=== PATIENT | female | born 1980 | race American Indian/Alaskan Native ===

== ENCOUNTER 2017-04-06 23:27 | Emergency (ER) | payer SELFPAY ==
[2017-04-07] MEDS ORDERED: CATAPRES PO ONE (00:05)
[2017-04-07 00:26] LABS: Basophils % (Auto) 0.3 % (0.0-1.8); Hematocrit 34.6 % (30.3-42.9); Hemoglobin 11.1 gm/dl (10.1-14.3); Mean Corpuscular HGB Conc 32 % (30-34); Mean Corpuscular Hemoglobin 24 pg (28-32); Mean Corpuscular Volume 76 fl (79-97); Platelet Count 364 K/mm3 (140-440); Red Blood Count 4.53 M/mm3 (3.65-5.03); Red Cell Distribution Width 17.7 % (13.2-15.2); White Blood Count 10.5 K/mm3 (4.5-11.0)
[2017-04-07 00:46] LABS: Anion Gap 20 mmol/L; Blood Urea Nitrogen 15 mg/dL (7-17); Calcium 10.1 mg/dL (8.4-10.2); Carbon Dioxide 22 mmol/L (22-30); Chloride 96.7 mmol/L (98-107); Glucose 131 mg/dL (65-100); Potassium 3.9 mmol/L (3.6-5.0); Sodium 135 mmol/L (137-145)
--- NOTE | 2017-04-07 01:43 | Emergency Department Report ---
ED ENT HPI - General Chief complaint: Sore Throat Stated complaint: DIFFCULTY SWALLOWING Time Seen by Provider: 04/07/17 00:57 Source: patient Mode of arrival: Ambulatory Limitations: No Limitations - History of Present Illness Initial comments: This is a 37-year-old female well-nourished with nontoxic or ill in appearance that presents sore throat and painful swallowing that started to occur today around 5 pm. Patient stated was d/c from [facility] 4 days ago for hypertension and hypokalemia and was prescribed potassium chloride 20 meq and HCTZ 25mg. Patient stated has been taking those medications since prescribed. Patient denies any fever, chills, blurry vision, headache, abd pain, CP, SOB, headache, stiff neck, numbness, or tingling, n/v. Patient associated symptoms include sore throat that is described as sharp rating 8/10. Patient stated she was eating a sub and salad before coming to the ED around 7 pm. Patient denies cough or aspiration. Patient denies drug allergies. Hx of HTN. MD complaint: sore throat, difficulty swallowing (with pain) -: days(s) (1) Location: throat Severity: mild Severity scale (0 -10): 8 Quality: stabbing Consistency: constant Improves with: none Worsens with: swallowing Associated Symptoms: pain with swallowing, sore throat. denies: fever, cough, gum swelling, toothache, tinnitus, hearing loss, discharge from ear, rhinorrhea - Related Data Previous Rx's Medication Instructions Recorded Last Taken Type Cephalexin [Keflex] 500 mg PO Q6HR #20 capsule 10/06/15 Unknown Rx Erythromycin [Erythromycin Ophth 0 gm OU Q4HR #1 tube 10/06/15 Unknown Rx Oint] Ibuprofen [Motrin 800 MG tab] 800 mg PO TID PRN #30 tablet 11/07/15 Unknown Rx oxyCODONE /ACETAMINOPHEN [Percocet 1 tab PO Q4HR #30 tablet 11/07/15 Unknown Rx 5/325 mg] Amoxicillin/K Clav Tab [Augmentin 1 tab PO Q12HR #20 tab 04/07/17 Unknown Rx 875 mg] Allergies Allergy/AdvReac Type Severity Reaction Status Date / Time No Known Allergies Allergy Verified 02/21/14 03:06 ED Dental HPI - General Chief complaint: Sore Throat Stated complaint: DIFFCULTY SWALLOWING Time Seen by Provider: 04/07/17 00:57 Source: patient Mode of arrival: Ambulatory Limitations: No Limitations - Related Data Previous Rx's Medication Instructions Recorded Last Taken Type Cephalexin [Keflex] 500 mg PO Q6HR #20 capsule 10/06/15 Unknown Rx Erythromycin [Erythromycin Ophth 0 gm OU Q4HR #1 tube 10/06/15 Unknown Rx Oint] Ibuprofen [Motrin 800 MG tab] 800 mg PO TID PRN #30 tablet 11/07/15 Unknown Rx oxyCODONE /ACETAMINOPHEN [Percocet 1 tab PO Q4HR #30 tablet 11/07/15 Unknown Rx 5/325 mg] Amoxicillin/K Clav Tab [Augmentin 1 tab PO Q12HR #20 tab 04/07/17 Unknown Rx 875 mg] Allergies Allergy/AdvReac Type Severity Reaction Status Date / Time No Known Allergies Allergy Verified 02/21/14 03:06 ED Review of Systems ROS: Stated complaint: DIFFCULTY SWALLOWING Other details as noted in HPI Constitutional: denies: chills, fever Eyes: denies: eye pain, eye discharge, vision change ENT: throat pain. denies: ear pain Respiratory: denies: cough, orthopnea, shortness of breath, SOB with exertion, SOB at rest, wheezing Cardiovascular: denies: chest pain, palpitations Endocrine: no symptoms reported Gastrointestinal: denies: abdominal pain, nausea, diarrhea Genitourinary: denies: urgency, dysuria, discharge Musculoskeletal: denies: back pain, joint swelling, arthralgia Skin: denies: rash, lesions Neurological: denies: headache, weakness, paresthesias Psychiatric: denies: anxiety, depression Hematological/Lymphatic: denies: easy bleeding, easy bruising ED Past Medical Hx - Past Medical History Previous Medical History?: Yes Hx Hypertension: Yes (3 years) Hx Congestive Heart Failure: No Hx Diabetes: No Hx Deep Vein Thrombosis: No Hx Liver Disease: No Hx Renal Disease: No Hx Sickle Cell Disease: No Hx Seizures: No Hx Asthma: No Hx COPD: No Hx HIV: No - Surgical History Past Surgical History?: Yes Additional Surgical History: C SECTION X2 / TUBAL LIGATION - Social History Smoking Status: Former Smoker Substance Use Type: None - Medications Home Medications: Home Medications Medication Instructions Recorded Confirmed Last Taken Type Cephalexin [Keflex] 500 mg PO Q6HR #20 capsule 10/06/15 11/07/15 Unknown Rx Erythromycin [Erythromycin Ophth 0 gm OU Q4HR #1 tube 10/06/15 11/07/15 Unknown Rx Oint] Ibuprofen [Motrin 800 MG tab] 800 mg PO TID PRN #30 tablet 11/07/15 Unknown Rx oxyCODONE /ACETAMINOPHEN [Percocet 1 tab PO Q4HR #30 tablet 11/07/15 Unknown Rx 5/325 mg] Amoxicillin/K Clav Tab [Augmentin 1 tab PO Q12HR #20 tab 04/07/17 Unknown Rx 875 mg] ED Physical Exam - General Limitations: No Limitations General appearance: alert, in no apparent distress - Head Head exam: Present: atraumatic, normocephalic, normal inspection - Eye Eye exam: Present: normal appearance, PERRL, EOMI. Absent: scleral icterus, conjunctival injection, nystagmus, periorbital swelling, periorbital tenderness - ENT ENT exam: Present: normal exam, normal orophraynx, mucous membranes moist, TM's normal bilaterally, normal external ear exam - Expanded ENT Exam Expanded Mouth exam: Present: normal external inspection, tongue normal. Absent: drooling, trismus, muffled voice, tongue elevation, laceration Teeth exam: Present: normal inspection Throat exam: Positive: tonsillar erythema, tonsillomegaly (2+), tonsillar exudate, other (uvula midline). Negative: R peritonsillar mass, L peritonsillar mass - Neck Neck exam: Present: normal inspection, full ROM. Absent: tenderness, meningismus, lymphadenopathy, thyromegaly - Respiratory Respiratory exam: Present: normal lung sounds bilaterally. Absent: respiratory distress, wheezes, rales, rhonchi, stridor, chest wall tenderness, accessory muscle use, decreased breath sounds, prolonged expiratory - Cardiovascular Cardiovascular Exam: Present: regular rate, normal rhythm. Absent: systolic murmur, diastolic murmur, rubs, gallop - GI/Abdominal GI/Abdominal exam: Present: soft, normal bowel sounds. Absent: distended, tenderness, guarding, rebound, rigid, diminished bowel sounds - Extremities Exam Extremities exam: Present: normal inspection, full ROM, normal capillary refill. Absent: tenderness, pedal edema, joint swelling, calf tenderness - Back Exam Back exam: Present: normal inspection, full ROM. Absent: tenderness, CVA tenderness (R), CVA tenderness (L), muscle spasm, paraspinal tenderness, vertebral tenderness, rash noted - Neurological Exam Neurological exam: Present: alert, oriented X3, CN II-XII intact, normal gait - Psychiatric Psychiatric exam: Present: normal affect, normal mood - Skin Skin exam: Present: warm, dry, intact, normal color. Absent: rash ED Course Vital Signs 04/06/17 04/07/17 23:36 00:19 Temperature 98.1 F Pulse Rate 102 H 101 H Respiratory 20 Rate Blood Pressure 159/128 159/128 O2 Sat by Pulse 100 Oximetry - Reevaluation(s) Reevaluation #1: 04/07/17 01:36 Patient is eating chips and drinking soda. No signs of acute distress noted. ED Medical Decision Making - Lab Data Result diagrams: 04/06/17 23:59 04/06/17 23:59 - Medical Decision Making Ed course: This is a 37-year-old female that presents with exudative tonsillitis. 1- a CBC and BMP has been obtained in the ED. 2- Patient received catapres 0.2mg in the ED to lower patients b/p. 3- Patient was referred to a PCP and coating mixer to f/u in 24 hours. 4- Patient received Augmentin at the time of discharge and was instructed to finish full course of antibiotics. 5- at time time of discharge, the patient does not seem toxic or ill in appearance. No acute signs of distress noted. Patient agrees to discharge treatment plan of care. No further questions noted by the patient. 6- patient was also instructed to continue taking her blood pressure medication as prescribed. Critical care attestation.: If time is entered above; I have spent that time in minutes in the direct care of this critically ill patient, excluding procedure time. ED Disposition Clinical Impression: Tonsillar exudate Disposition: [id number] TO HOME OR SELFCARE Is pt being admited?: No Does the pt Need Aspirin: No Condition: Stable Instructions: Tonsillitis (ED), Amoxicillin/Clavulanate Potassium (By mouth) Additional Instructions: Continue taking her blood pressure medication as prescribed and follow up with her primary care doctor/coating mixer within 24 hours. If symptoms worsen or continue such as shortness of breath, difficulty breathing , chest pain, headache, fever or chills report back to emergency room as soon as possible Prescriptions: Amoxicillin/K Clav Tab [Augmentin 875 mg] 1 tab PO Q12HR #20 tab Referrals: [facility] [Outside] - 3-5 Days [facility] [Outside] - 3-5 Days [facility] [Outside] - 3-5 Days [place] GRAY MD [Staff Physician] - 24 Hours PRIMARY CARE, [Primary Care Provider] - 24 Hours RODGER CEDENO JR, MD [Staff Physician] - 24 Hours Forms: Work/School Release Form(ED)
[2017-04-07 01:54] VITALS: BP 144/107
== END 2017-04-07 02:40 | disposition home or self-care (01) ==
LOC: ED 23:27
DX: J03.90 Acute tonsillitis, unspecified (principal); I10 Essential (primary) hypertension; Z87.891 Personal history of nicotine dependence
CPT/HCPCS: 36415; 80048; 85025; 99283

== ENCOUNTER 2017-04-07 08:28 | Emergency (ER) | payer SELFPAY ==
[2017-04-07 08:46] VITALS: BP 145/111
== END 2017-04-07 08:55 | disposition left against medical advice (07) ==
LOC: ED 08:28
DX: R42 Dizziness and giddiness (principal); Z53.21 Procedure and treatment not carried out due to patient leaving prior to being seen by health care provider